=== PATIENT | male | born 1940 | race Caucasian/White ===

== ENCOUNTER → 2017-01-29 | Outpatient (CLI) | payer MEDICARE, BC ==
[~2017-01-29] MED LIST: ASPIRIN81 M2 PO; BIOTIN5000 MCG; CALCIUM-MAG-ZI1 EACH; COENZYME Q10100 M1 PO; FISH OIL 1,0001 EAC1; GARLIC1000 MG PO; GLUCOSAMINE500 M1 DOB; HYDROCHLOROTHIA25 MG; LISINOPRIL20 MG PO; MAGNESIUM250 M1 PO; MELATONIN3 MG PO; MULTI-DAY VITA1 EACH; SUPER B-50 COM1 EACH; VALERIAN ROOT445 MG PO; VITAMIN C500 MG PO; VITAMIN D35000 UNIT PO
--- NOTE | ~2017-01-29 | EKG ---
PATIENT: VIRGILIO FERREIRA UNIT #: [id number] Ventricular Rate: 59 BPM Atrial Rate: 59 BPM P-R Interval: 130 ms QRS Duration: 82 ms Q-T Interval: 404 ms QTC Calculation(Bezet): 399 ms P [place]: 56 degrees Calculated R [place]: 55 degrees Calculated T [place]: 41 degrees Diagnosis Line: Sinus bradycardia with Premature atrial complexes Diagnosis Line: Nonspecific T wave abnormality Diagnosis Line: Otherwise normal ECG Diagnosis Line: No previous ECGs available Diagnosis Line: Confirmed by CHENCHO SANCHEZ MD ([id number]) on 01/30/2017 Diagnosis Line: 10:00:42 AM INTERPRETING MD: DANIEL BARNHART
[2017-01-29 12:51] LABS: HEMATOCRIT 50.5 % (38.0-50.0); HEMOGLOBIN 16.8 gm/dL (13.0-16.0); MEAN CORPUSCULAR HEMOGLOBIN 31.9 PG (28-34); MEAN CORPUSCULAR HGB CONC 33.3 g/dL (30-36); MEAN PLATELET VOLUME 7.9 FL (6.5-11.5); RED BLOOD COUNT 5.26 X10e (3.90-5.60); RED CELL DISTRIBUTION WIDTH 13.5 % (11.0-15.5); WHITE BLOOD COUNT 7.5 X10e3 (4.0-10.5)
[2017-01-29 13:56] LABS: BUN/CREATININE RATIO 21.11; CALCIUM SERUM 9.4 mg/dL (8.4-10.2); CREATININE SERUM 0.9 mg/dL (0.6-1.4); GLOM FILT RATE Estimated 82.7 mL/min (>60); POTASSIUM 4.1 mmol/L (3.5-5.1)
== END | disposition home or self-care (01) ==
LOC: CAMB 10:10 → EDSTATUS 11:00
PROVIDERS: Surgery
DX: Z01.818 Encounter for other preprocedural examination (principal); K40.90 Unilateral inguinal hernia, without obstruction or gangrene, not specified as recurrent
CPT/HCPCS: 36415; 80048; 85027; 93005

== ENCOUNTER → 2017-02-04 | Day surgery (SDC) | payer MEDICARE, BC ==
--- NOTE | ~2017-02-04 | OR ---
Unit #: [id number] #: [id number] Patient: VIRGILIO FERREIRA [id number] [address] [place], [place] [address] [id number] O MR#: [id number] NAME: VIRGILIO FERREIRA ROOM: Date of Procedure: 02/04/2017 Admission Date: 02/04/2017 Surgeon: Sebas Ford M.D. : 1940 Attending Physician: Sebas Ford M.D. Primary Care Physician: Jovany Paul Jr., M.D. OPERATIVE REPORT PREOPERATIVE DIAGNOSIS Recurrent right inguinal hernia. POSTOPERATIVE DIAGNOSIS Recurrent incarcerated indirect right inguinal hernia. PROCEDURE PERFORMED Laparoscopic preperitoneal inguinal hernia repair of recurrent incarcerated right indirect inguinal hernia. RADIOLOGICAL ENGINEER None. ANESTHESIA General endotracheal anesthesia. ESTIMATED BLOOD LOSS Minimal. IV FLUIDS 800 crystalloid. COMPLICATIONS None. INDICATIONS FOR PROCEDURE The patient is a 76-year-old with right inguinal hernia, status post repair in 2009. He presents for laparoscopic repair. DESCRIPTION OF PROCEDURE The patient was taken to the operating theater and placed in supine position. General anesthesia was induced. The abdomen was prepped and draped. An infraumbilical incision was then made. A small incision was made in the anterior sheath and created the preperitoneal space in the right side with blunt dissection. I placed a Veress needle intraabdominal. The abdomen was insufflated to 15 mmHg with CO2. I placed a 5-mm port. The patient was placed in Trendelenburg. I identified a right-sided indirect incarcerated inguinal hernia. This was reduced with gentle external palpation. This appeared to be an indirect hernia. I thus released the pneumoperitoneum. I created the preperitoneal space in the right side only using the AutoSuture balloon dissection system. I placed two 5-mm ports in the midline. I dissected Unit #: [id number] #: [id number] Patient: VIRGILIO FERREIRA the right groin, identifying the lateral space and was able to reduce the indirect hernia. There was a large cord lipoma at this location. I identified Julio Cesar ligament. I placed a large 3DMax mesh into position. This was anteriolized and secured to the Julio Cesar ligament as well as the lateral anterior musculature with a SorbaFix Tacker. This covered the direct and indirect spaces nicely. I then released the pneumopreperitoneum with care taken to avoid the peritoneum sliding posterior to the mesh. Hemostasis was adequate. I removed the ports under direct vision and closed the fascia with 0 Vicryl and skin with 4-0 Vicryl. The patient tolerated the procedure well and sent to the recovery room in good condition. Dictated by... Sandro Goel/baldomero TD: 02/05/2017 02:51 JOB #: [id number] OPERATIVE REPORT Page 1 of 1 X Sebas Ford MD X PROCEDURE OPERATIVE NOTE
== END | disposition home or self-care (01) ==
LOC: CSUR 05:23
DX: K40.31 Unilateral inguinal hernia, with obstruction, without gangrene, recurrent (principal); I10 Essential (primary) hypertension; Z85.72 Personal history of non-Hodgkin lymphomas; Z86.010 Personal history of colon polyps; Z86.2 Personal history of diseases of the blood and blood-forming organs and certain disorders involving the immune mechanism; Z80.0 Family history of malignant neoplasm of digestive organs; F17.200 Nicotine dependence, unspecified, uncomplicated; Z79.82 Long term (current) use of aspirin; Z91.048 Other nonmedicinal substance allergy status
CPT/HCPCS: C1781; J0131; J0330; J0690; J1885; J2250; J2405; J2710; J3010